=== PATIENT | male | born 1970 | race Caucasian/White ===

== ENCOUNTER 2021-12-25 22:02 | Emergency (ER) | payer OTHER ==
[~2021-12-25] VITALS: Ht 177.8 cm; Wt 95.3 kg
--- NOTE | 2021-12-25 22:26 | NUR ---
BIBRA FROM HOME C/O BACK PAIN RAD TO LOWER BACK X 4 DAYS trouble urinating . PT A/OX4. TOLERATING R/A WELL WITH NO SOB. CONNECTED PT TO POX AND MONITOR.
[2021-12-25] MEDS ORDERED: ONDANSETRON HCL/PF 4 MG/2 ML VIAL ONE (22:42)
[2021-12-25] MEDS ORDERED: KETOROLAC TROMETHAMINE INJ 30 MG/ML VIAL ONE (22:42)
[2021-12-25] MEDS ORDERED: IV NS 0.9% 500 ML BAG IV ONE (23:00)
[2021-12-25] MEDS ORDERED: KETOROLAC TROMETHAMINE INJ 30 MG/ML VIAL IV ONE (23:00)
[2021-12-25] MEDS ORDERED: ONDANSETRON HCL/PF 4 MG/2 ML VIAL IVP ONE (23:00)
--- NOTE | 2021-12-25 23:22 | NUR ---
SOURCING CONSULTANT AT PT'S BEDSIDE
--- NOTE | 2021-12-25 23:25 | NUR ---
PT TAKEN TO CT VIA ODMINIQUE
--- NOTE | 2021-12-25 23:25 | NUR ---
PT HARD STICK; NOT ABLE TO ESTABLISH IV AT THIS TIME. DR. BUENROSTRO VERBAL ORDERS FOR ZOFRAN & TORADOL TO BE GIVEN IM
[2021-12-25 23:29] LABS: BASOPHILS % (AUTO) 0.2 % (0.0-2.0); EOSINOPHILS % (AUTO) 0.4 % (0.0-6.0); HEMATOCRIT 34 % (39-51); HEMOGLOBIN 11.3 g/dL (13.5-17.5); LYMPHOCYTES # (AUTO) 1.9 K/uL (0.8-4.8); MEAN CORPUSCULAR HGB CONC 33 g/dl (31.0-36.0); MEAN CORPUSCULAR VOLUME 80 fL (80-96); MONOCYTES # (AUTO) 1.4 K/uL (0.1-1.30); MONOCYTES % (AUTO) 7.3 % (2.0-12.0); NEUTROPHILS # (AUTO) 15.6 K/uL (1.8-8.9); NEUTROPHILS % (AUTO) 82.1 % (43.0-81.0); PLATELET COUNT (AUTO) 556 K/uL (150-450); RED BLOOD CELL COUNT(AUTO) 4.24 MIL/uL (4.5-6.0); WHITE BLOOD COUNT (AUTO) 18.9 K/uL (4.3-11.0)
[2021-12-25 23:44] LABS: ALBUMIN 2.3 g/dL (3.4-5.0); BILIRUBIN,DIRECT 0.1 mg/dL (0.0-0.2); BILIRUBIN,TOTAL 0.3 mg/dL (0.2-1.0); CALCIUM, SERUM 9.3 mg/dL (8.5-10.1); CREATININE 0.7 mg/dL (0.6-1.3); POTASSIUM 3.7 mmol/L (3.5-5.1); TOTAL PROTEIN, SERUM 8.3 g/dL (6.4-8.2)
--- NOTE | 2021-12-25 23:48 | NUR ---
URINE COLLECTED AND SENT TO LAB
[2021-12-26 00:20] LABS: BILIRUBIN,URINE SMALL (NEGATIVE); COLOR,URINE YELLOW (YELLOW); LEUKOCYTE ESTERASE ,URINE NEGATIVE (NEGATIVE); NITRITE, URINE NEGATIVE (NEGATIVE); PROTEIN,URINE TRACE mg/dl (NEGATIVE); UGLUCOSE NEGATIVE (NEGATIVE)
--- NOTE | 2021-12-26 00:27 | NUR ---
COVID ANTIGEN SWAB COLLECTED AND SENT TO LAB
[2021-12-26] MEDS ORDERED: VANCOMYCIN 1 GM in IV D5W 250 ML IV ONE (00:30)
[2021-12-26] MEDS ORDERED: CEFEPIME 2 GM in IV D5W 100 ML IV ONE (00:30)
--- NOTE | 2021-12-26 00:32 | NUR ---
BRIM CUTTER AT PT'S BEDSIDE
--- NOTE | 2021-12-26 00:41 | NUR ---
DR. ULICES VIZCAINO SPEAKING TO DR. PERES RADIOLOGIST
[2021-12-26] MEDS ORDERED: VANCOMYCIN 1 GM VIAL ONE (00:58)
[2021-12-26] MEDS ORDERED: CEFEPIME 1 GM VIAL ONE (00:58)
[2021-12-26] MEDS ORDERED: ONDANSETRON HCL/PF 4 MG/2 ML VIAL ONE (01:12)
[2021-12-26] MEDS ORDERED: MORPHINE SULFATE INJ 4 MG/ML DISP.SYRIN ONE ×2 (01:12→06:29)
[2021-12-26] MEDS ORDERED: MORPHINE SULFATE INJ 2 MG/ML DISP.SYRIN IV ONE ×2 (01:30→07:00)
[2021-12-26] MEDS ORDERED: ONDANSETRON HCL/PF 4 MG/2 ML VIAL IV ONE (01:30)
--- NOTE | 2021-12-26 03:50 | NUR ---
CALLING TO FOLLOW UP REGARDING PT TRANSFER.
--- NOTE | 2021-12-26 04:07 | NUR ---
GALINA VITALE FROM [facility], PT GOING TO ER , NUMBER FOR REPORT [phone]
[2021-12-26 04:53] VITALS: BP 144/82
--- NOTE | 2021-12-26 05:28 | NUR ---
REPORT GIVEN TO AMANDA HARDWICK FROM [facility] [phone]. AMANDA REQUESTED FOR [facility] TO CALL BACK WITH PT'S TRANSFER ETA FOR POSSIBLE ADMITTING ROOM
--- NOTE | 2021-12-26 06:03 | NUR ---
[facility] CALLED FOR BLS TO [facility] ER AUTH #[id number] eta 60 min
--- NOTE | 2021-12-26 07:25 | NUR ---
Report given to [facility] unit [id number] for pt to transfer to [facility].
--- NOTE | 2021-12-26 08:18 | NUR ---
SELWYN FROM [facility] CALLED REQUESTING CT RESULT FAXED TO [phone] TEL [phone]
--- NOTE | 2021-12-26 22:32 | NUR ---
POSITIVE BLOOD CULTURE.
== END 2021-12-26 07:28 | disposition short-term general hospital (02) ==
LOC: ER 22:10
DX: M46.24 Osteomyelitis of vertebra, thoracic region (principal); U07.1 COVID-19; F19.10 Other psychoactive substance abuse, uncomplicated; Z87.442 Personal history of urinary calculi; J90 Pleural effusion, not elsewhere classified
CPT/HCPCS: 99291; 74176; 96372 ×2; 85025; 80048; 83605; 83690; 80076; 36415; 85730; 80307; 81003; 96365; 96375 ×2; 87426; 96376; 87077 ×2; 87081; 87040 ×2; J1885; J2405 ×2; J7030; J2270 ×2; J3370; J7060 ×2; J7040; J0692; C9803

== ENCOUNTER 2022-01-08 03:51 | Emergency (ER) | payer OTHER ==
[~2022-01-08] VITALS: Ht 175.3 cm; Wt 90.7 kg
--- NOTE | 2022-01-08 04:13 | NUR ---
BIBRA FROM HOME C/O BACK PAIN [id number] DIFFICULTY STANDING/WALKING X3DAYS. A/OX4. TOLERATING R/A WELL WITH NO SOB OR RESP DISTRESS. SAFETY MEASURES IN PLACE .
[2022-01-08] MEDS ORDERED: IV NS 0.9% 1,000 ML BAG IV ONE (04:30)
--- NOTE | 2022-01-08 04:35 | NUR ---
COVID SWAB COLLECTED AND SENT TO LAB
--- NOTE | 2022-01-08 04:48 | NUR ---
David ORNELAS #24G S/L BLOOD COLLECTED AND SENT TO LAB
[2022-01-08] MEDS ORDERED: VANCOMYCIN 1 GM VIAL ONE (04:52)
[2022-01-08] MEDS ORDERED: CEFEPIME 1 GM VIAL ONE (04:52)
[2022-01-08 04:53] LABS: BASOPHILS # (AUTO) 0.1 K/uL (0.0-0.2); BASOPHILS % (AUTO) 0.5 % (0.0-2.0); EOSINOPHILS % (AUTO) 0.7 % (0.0-6.0); HEMATOCRIT 33 % (39-51); HEMOGLOBIN 10.8 g/dL (13.5-17.5); LYMPHOCYTES # (AUTO) 3.4 K/uL (0.8-4.8); MEAN CORPUSCULAR HGB CONC 33 g/dl (31.0-36.0); MEAN CORPUSCULAR VOLUME 81 fL (80-96); MONOCYTES # (AUTO) 1.7 K/uL (0.1-1.30); MONOCYTES % (AUTO) 9.1 % (2.0-12.0); NEUTROPHILS # (AUTO) 13.5 K/uL (1.8-8.9); NEUTROPHILS % (AUTO) 71.7 % (43.0-81.0); RED BLOOD CELL COUNT(AUTO) 4.09 MIL/uL (4.5-6.0); WHITE BLOOD COUNT (AUTO) 18.8 K/uL (4.3-11.0)
[2022-01-08 04:55] LABS: PLATELET COUNT (AUTO) 975 K/uL (150-450)
--- NOTE | 2022-01-08 04:55 | NUR ---
PT TAKEN TO CT VIA DOMINIQUE
[2022-01-08 05:00] LABS: CALCIUM, SERUM 9.9 mg/dL (8.5-10.1); CREATININE 0.9 mg/dL (0.6-1.3); POTASSIUM 4.1 mmol/L (3.5-5.1)
[2022-01-08] MEDS ORDERED: CEFEPIME 2 GM in IV D5W 100 ML IV ONE (05:00)
[2022-01-08] MEDS ORDERED: VANCOMYCIN 1 GM in IV D5W 250 ML IV ONE (05:00)
[2022-01-08 05:06] LABS: ALBUMIN 2.5 g/dL (3.4-5.0); BILIRUBIN,DIRECT 0.1 mg/dL (0.0-0.2); BILIRUBIN,TOTAL 0.3 mg/dL (0.2-1.0); TOTAL PROTEIN, SERUM 9.4 g/dL (6.4-8.2)
--- NOTE | 2022-01-08 05:22 | NUR ---
URINE COLLECTED AND SENT TO LAB
[2022-01-08 06:07] LABS: BILIRUBIN,URINE SMALL (NEGATIVE); COLOR,URINE YELLOW (YELLOW); LEUKOCYTE ESTERASE ,URINE NEGATIVE (NEGATIVE); NITRITE, URINE NEGATIVE (NEGATIVE); PH,URINE 5.5 (5.0-8.0); PROTEIN,URINE TRACE mg/dl (NEGATIVE); UGLUCOSE NEGATIVE (NEGATIVE)
--- NOTE | 2022-01-08 06:43 | NUR ---
CLINICALS FAXED TO [facility]TAKE
--- NOTE | 2022-01-08 07:05 | NUR ---
CALLED DR PETERSON [phone] FOR PEER TO PEER
--- NOTE | 2022-01-08 07:15 | NUR ---
SECOND CALLED TO DR PETERSON [phone] FOR PEER TO PEER
[2022-01-08 07:47] LABS: BACTERIA,URINE Rare /HPF (None Seen); RBC,URINE NONE SEEN /HPF (0-2); SQUAMOUS EPITHELIAL CELL,UR 0-2 /HPF (None Seen); WBC,URINE 0-2 /HPF (0-3)
--- NOTE | 2022-01-08 08:23 | NUR ---
DR CHARLES TALKING TO DR EDMONDSON FOR PEER TO PEER
--- NOTE | 2022-01-08 09:23 | NUR ---
Patient going to [facility] room 2282 [phone] number for report. Yahir () [phone].
[2022-01-08 10:25] VITALS: BP 109/60
--- NOTE | 2022-01-08 10:25 | NUR ---
[facility] CALLED FOR TRANSPORT WITH ETA 60 MINS.
--- NOTE | 2022-01-08 10:38 | NUR ---
report given to fifi at [facility]. awaiting transport.
== END 2022-01-08 11:47 | disposition short-term general hospital (02) ==
LOC: ER 03:57
DX: D75.839 Thrombocytosis, unspecified (principal); M85.88 Other specified disorders of bone density and structure, other site; M54.9 Dorsalgia, unspecified; D72.829 Elevated white blood cell count, unspecified; R74.8 Abnormal levels of other serum enzymes; Z20.822 Contact with and (suspected) exposure to COVID-19
CPT/HCPCS: 99285; 96365; 72131; 87426; 96368; 85025; 80048; 87077; 87040 ×2; 83605; 80076; 36415; 85730; 81001; 80307 ×2; J3370; J7060 ×2; J7030; J0692; C9803